=== PATIENT | male | born 1965 | race Caucasian/White ===

== ENCOUNTER 2016-06-22 12:36 | Emergency (ER) | payer MEDICAID ==
--- NOTE | 2016-06-22 13:42 | ER NURSING DOCUMENTATION ---
Nurse's Notes [facility] Name:Robbin Hammond Jr Age:51 yrs Sex:Male :1965 Arrival Date:06/22/2016 Time:12:36 Bed4 Private MD:Chato Pike Diagnosis:Cough Presentation: 06/22 12:54 Presenting complaint: Patient states: cough, congestion, SOB for the last month and a sc1 half but a little worse for the last 3 weeks. Pt. was put on Bactrim by Dr. Beard but is no better. Transition of care: Home. Notified ED Physician of patient's arrival and CC Ventura Briseno notified. 12:54 Acuity: SHANNON 3 sc1 12:54 Method Of Arrival: Private Vehicle sc1 Triage Assessment: 13:11 General: Appears uncomfortable, well developed, well nourished, well groomed, Behavior sc1 is cooperative, pleasant. Pain: Complains of pain in chest. Pain: Quality of pain is described as burning. Respiratory: Breath sounds are clear bilaterally. Reports shortness of breath cough that is pain with cough pain with respiration Onset: The symptoms/episode began/occurred 3 - 7 weeks, the patient has moderate shortness of breath. Historical: - Allergies: No known drug Allergies; - Home Meds: 1. Bactrim DS Oral 2. Advair Diskus Inhl 3. Proair 4. Atenolol Oral - PMHx: HYPERTENSION; Bronchitis Asthmatic (August 02, 2014); - PSHx: repair of tendons in hand; - Ebola Screening: : Patient negative for fever greater than or equal to 101.5 degrees Fahrenheit, and additional compatible Ebola Virus Disease symptoms. Patient denies exposure to infectious person. Patient denies travel to an Ebola-affected area in the 21 days before illness onset. No symptoms or risks identified at this time. . - Immunization history: Flu Vaccine >1 year. - Social history: Smoking status: Patient states was never smoker of tobacco. Patient uses marijuana Patient/guardian denies using alcohol, street drugs, IV drugs. Screenin:13 Infectious Disease Risk None. Abuse screen: Denies threats or abuse. Nutritional sc1 screening: No deficits noted. Assessment: 13:42 Cardiovascular: Rhythm is regular. Respiratory: Airway is patent Respiratory effort is sc1 even, unlabored. Vital Signs: 13:12 BP 186 / 116; Pulse 88; Resp 18; Temp 98.2; Pulse Ox 96% on R/A; ri1 13:37 BP 168 / 98; Pulse 82; Resp 18; Temp 98.3; Pulse Ox 95% on R/A; [facility] ED Course: 12:38 Patient arrived in ED. ama 12:39 Chato Pike MD is Private Physician. ama 12:39 Chato Pike MD is Private Physician. ama 12:54 Raina Polo RN is Primary Nurse. [facility] 13:04 Triage completed. ri1 13:08 Kavon Whitehead MD is Attending Physician. wilda 13:13 Notified ED Physician of patient's arrival and chief complaint. Dr. Whitehead notified. Arm ri1 band placed on Bed in low position Call Light in Reach Gowned HOB Elevated Side rails up x1. 13:30 Chato Pike MD is Referral Physician. 13:42 Valuables Remains with patient. ri1 Administered Medications: No medications were administered Outcome: 13:31 Discharge ordered by MD. 13:37 Discharged to home ambulatory. [facility] 13:37 Condition: stable 13:37 Discharge instructions given to patient, Instructed on discharge instructions, follow up and referral plans. medication usage, Demonstrated understanding of instructions, medications, Prescriptions given X 4. 13:42 Patient left the ED. [facility] 06/23 13:55 Discharge F/U Call: Unable to reach: non-working number [facility] Signatures: Raina Polo RN RN [facility] Kavon Whitehead MD MD jm Averdick, Andrew, Reg Reg Mehrdad Millan mr
--- NOTE | 2016-06-22 13:42 | ER PHYSICIAN DOCUMENTATION ---
Physician Documentation [facility] Name:Robbin Hammond Jr Age:51 yrs Sex:Male :1965 Arrival Date:06/22/2016 Time:12:36 Bed4 Private MD:Chato Pike ED, John Disposition: 06/22/16 13:31 Discharged to Home/Self Care. Impression: Cough. - Condition is Good. - Prescriptions for Prednisone 20 mg Oral Tablet - take 2 tablet by ORAL route once daily for 5 days; 10 tablet. Tessalon Perles 100 mg Oral Capsule - take 1 capsule by ORAL route every 8 hours As needed; 15 capsule. Tussionex Pennkinetic ER 8- 10 mg/5 mL Oral - take 5 milliliter by ORAL route every 12 hours As needed; 100 milliliter. Cipro 500 mg Oral Tablet - take 1 tablet by ORAL route every 12 hours for 7 days; 14 tablet. - Medical Reconciliation form form. - Follow up: Chato Pike MD; When: 1 week; Reason: Continuance of care. - Problem is new. - Symptoms have improved. HPI: 06/22 13:00 This 51 yrs old Male presents to ER via Private Vehicle with complaints of jm Breathing Difficulty, Sore Throat. 13:00 The patient has shortness of breath at rest, with light activity. Onset: The jm symptom(s)/episode began/occurred 1 month(s) ago. Duration: The symptoms are continuous. Associated signs and symptoms: Pertinent positives: productive cough, sore throat and horse voice. . The patient has been recently seen by a physician: Dr. Pike, who thought he may have a staph infection, so he rx'd home 1 month supply of bactrim. . Cough has persisted after about 10 days of Bactrim, and pt feels he is getting no better, so he came here for a 2nd opinion. Pt is frustrated and sick of coughing. . Historical: - Allergies: No known drug Allergies; - Home Meds: 1. Bactrim DS Oral 2. Advair Diskus Inhl 3. Proair 4. Atenolol Oral - PMHx: HYPERTENSION; Bronchitis Asthmatic (August 02, 2014); - PSHx: repair of tendons in hand; - Ebola Screening: : Patient negative for fever greater than or equal to 101.5 degrees Fahrenheit, and additional compatible Ebola Virus Disease symptoms. Patient denies exposure to infectious person. Patient denies travel to an Ebola-affected area in the 21 days before illness onset. No symptoms or risks identified at this time. . - Immunization history: Flu Vaccine >1 year. - Social history: Smoking status: Patient states was never smoker of tobacco. Patient uses marijuana Patient/guardian denies using alcohol, street drugs, IV drugs. ROS: 13:00 Constitutional: Positive for fatigue, Negative for fever. jm 13:00 ENT: Positive for hoarseness, sore throat. 13:00 Respiratory: Positive for cough, dyspnea on exertion, shortness of breath. Exam: 13:00 Constitutional: The patient appears alert, awake, comfortable. 13:00 ENT: Posterior pharynx: is normal, Voice: is hoarse. 13:00 Cardiovascular: Rate: normal, Rhythm: regular. 13:00 Respiratory: Respirations: normal, Breath sounds: are normal. Vital Signs: 13:12 BP 186 / 116; Pulse 88; Resp 18; Temp 98.2; Pulse Ox 96% on R/A; sc1 13:37 BP 168 / 98; Pulse 82; Resp 18; Temp 98.3; Pulse Ox 95% on R/A; sc1 MDM: 13:00 Differential diagnosis: Anxiety Reaction Bronchitis pneumonia. Antibiotic administration: The patient is discharged and will get outpatient antibiotics, Cipro. Data reviewed: vital signs, nurses notes, old medical records, radiologic studies, and as a result, I will discharge patient. Test interpretation: by ED physician or midlevel provider: plain radiologic studies. Counseling: I had a detailed discussion with the patient and/or guardian regarding: the historical points, exam findings, and any diagnostic results supporting the discharge/admit diagnosis, radiology results, the need for outpatient follow up, with the patient's primary care provider. ED course: Pt w bronchitis in my opinoin. Will switch abx of cipro and given prednisone. Pt can f/u next week at [facility]. . 13:08 Patient medically screened. wilda Dispensed Medications: No medications were administered Signatures: Raina Polo RN RN sc1 Kavon Whitehead MD MD jm
--- NOTE | 2016-06-25 09:49 | RADIOLOGY REPORT ---
HISTORY: Shortness of breath requiring evaluation for infection. COMPARISON: November 30, 2014 chest radiographs FINDINGS: PA and lateral chest radiographs reveal the cardiac silhouette remains normal in size. No pneumothorax is identified. The lungs are clear. No acute osseous fractures are identified. IMPRESSION: Negative chest. Final Electronic Signature: This report was electronically signed by Carroll Nolen MD on 06/22/2016 1:44 PM. beka / YOAV
== END 2016-06-22 13:43 | disposition home or self-care (01) ==
LOC: ER 12:36
DX: R05 Cough (principal); J02.9 Acute pharyngitis, unspecified; R06.00 Dyspnea, unspecified; R06.02 Shortness of breath; R53.83 Other fatigue; R49.0 Dysphonia; I10 Essential (primary) hypertension; Z79.899 Other long term (current) drug therapy
CPT/HCPCS: 71020; 99282

== ENCOUNTER 2016-08-14 16:16 | Emergency (ER) | payer MEDICAID ==
[2016-08-14 17:08] LABS: INFLUENZA A/B INF A & B NEGATIVE
--- NOTE | 2016-08-14 18:08 | ER NURSING DOCUMENTATION ---
Nurse's Notes [facility] Name:Robbin Hammond Jr Age:51 yrs Sex:Male :1965 Arrival Date:08/14/2016 Time:16:16 Bed1 Private MD:Chato Pike Diagnosis:Laryngitis, w/o Obstruction;GERD Presentation: 08/14 16:15 Presenting complaint: Patient states: Cough, sore throat, abd pain (since vomiting x1 tg today), generally not feeling well. Symptoms have been on-going for 3 months, multiple workups, saw pulmonology yesterday ("lungs are fine."). Transition of care: patient was not received from another setting of care. 16:15 Method Of Arrival: Private Vehicle tg 16:17 Acuity: SHANNON 4 tg Triage Assessment: 16:40 General: Appears uncomfortable, Behavior is anxious, cooperative. Pain: Complains of tg pain in abdomen. EENT: Throat is clear. Cardiovascular: Capillary refill < 3 seconds. Respiratory: Breath sounds are clear bilaterally. Reports cough that is. GI: Bowel sounds present X 4 quads. Abd is soft Reports normal bowel habits, vomiting, Denies constipation, diarrhea, nausea. Historical: - Allergies: Bee venom; - Home Meds: 1. losartan oral 2. thrush med - PMHx: Binge drinker- last drink in Feb.; ASTHMA; TBI; HYPERTENSION; thrush; - PSHx: hand surgery; - Tetanus: < 10 years. - Ebola Screening: : Patient negative for fever greater than or equal to 101.5 degrees Fahrenheit, and additional compatible Ebola Virus Disease symptoms. Patient denies exposure to infectious person. Patient denies travel to an Ebola-affected area in the 21 days before illness onset. No symptoms or risks identified at this time. . - Immunization history: Flu Vaccine >1 year. - Social history: Smoking status: Patient states was never smoker of tobacco. Patient/guardian denies using alcohol, marijuana. Screenin:55 Infectious Disease Risk Unable to Obtain. Abuse screen: Denies threats or abuse. Denies tg injuries from another. Nutritional screening: No deficits noted. Assessment: 16:56 Reassessment: Pt reports that he has ABD pain in the left since throwing up x1 this tg today.. Vital Signs: 16:25 BP 145 / 105; Pulse 96; Resp 18; Temp 98.4(O); Pulse Ox 92% on R/A; Weight 114.31 kg tg (R); Height 73 in. (185.42 cm) (R); Pain 7/10; 16:25 Body Mass Index 33.25 (114.31 kg, 185.42 cm) tg ED Course: 16:17 Patient arrived in ED. ds 16:17 Chato Pike MD is Private Physician. ds 16:17 Joey Richardson, RN is Primary Nurse. tg 16:18 Triage completed. tg 16:55 Arm band placed on. tg 17:10 David Katz MD is Attending Physician. cd 17:16 Chato Pike MD is Referral Physician. cd 18:05 Valuables Remains with patient. tg Administered Medications: No medications were administered Outcome: 17:17 Discharge ordered by MD. cd 18:04 Discharged to home ambulatory. tg 18:04 Condition: stable 18:04 Discharge Assessment: Patient awake and alert. 18:04 Instructed on discharge instructions, follow up and referral plans. medication usage, Prescriptions given X 3. 18:07 Patient left the ED. tg 04 09:37 Discharge F/U Call: Unable to reach: non-working number lp Signatures: Joey Richardson, RN RN tg Nery Villasenor RN RN lp Srot, Agnieszka, Reg Reg ds David Katz MD MD cd
--- NOTE | 2016-08-14 18:08 | ER PHYSICIAN DOCUMENTATION ---
Physician Documentation [facility] Name:Robbin Hammond Jr Age:51 yrs Sex:Male :1965 Arrival Date:08/14/2016 Time:16:16 Bed1 Private MD:Chato Pike ED, Chris Disposition: 08/14 17:20 Chart complete. cd Disposition: 08/14/16 17:17 Discharged to Home/Self Care. Impression: Laryngitis, w/o Obstruction, GERD. - Condition is Fair. - Discharge Instructions: ESOPHAGEAL REFLUX (Adult), Disease, Laryngeal - LARYNGITIS. - Prescriptions for Prilosec 20 mg Oral Capsule - take 1 capsule by ORAL route once daily; 10 capsule. Zofran 4 mg Oral - take 1 tablet by ORAL route every 6 hours; 10 tablet. Medrol (Vish) 4 mg Oral - take 1 Pack by ORAL route as directed - follow package instructions / 6-day Medrol Dose PAck; 1 packet. - Medical Reconciliation form form. - Follow up: Chato Pike MD; When: 7 - 10 days; Reason: Recheck today's complaints, Continuance of care. - Problem is an ongoing problem. - Symptoms are unchanged. - Notes: Drink plenty of fluids / water. Take your Thrush Medication as directed. Take Benadryl 25mg by mouth every 6 hours for 1 - 2 days Take your Medrol Dose Pack as directed over the next 7 days. Take Prilosec 20mg by mouth every day for 10 days. Follow up with Dr. Gutierres ENT on 08/29/[address] Angulo ENT on 08/24/2016 HPI: 16:20 This 51 yrs old Male presents to ER via Private Vehicle with complaints of cd Cough, hoarse voice, SOB. 16:20 The patient or guardian reports cough, that is intermittent, with no sputum, difficulty cd breathing, hoarse voice. Onset: The symptom(s)/episode began/occurred acutely, 3 month(s) ago, started with flu like symptoms. He has had multiple workups, has been on one course of Steroid, two courses of antibiotics. He was seen by a [employer] yesterday and was told his "lungs are fine". Tomorrow he has lung function studies ordered. His voice has been hoarse lately, but no sneezing.. Severity of symptoms: At their worst the symptoms were moderate, in the emergency department the symptoms have improved, mildly. Associated signs and symptoms: Pertinent positives: diarrhea, nausea, vomiting, upper abdominal pain at times, but no melena, Pertinent negatives: chest pain, fever, rhinorrhea, sore throat. Historical: - Allergies: Bee venom; - Home Meds: 1. losartan oral 2. thrush med - PMHx: Binge drinker- last drink in Feb.; ASTHMA; TBI; HYPERTENSION; thrush; - PSHx: hand surgery; - Tetanus: < 10 years. - Ebola Screening: : Patient negative for fever greater than or equal to 101.5 degrees Fahrenheit, and additional compatible Ebola Virus Disease symptoms. Patient denies exposure to infectious person. Patient denies travel to an Ebola-affected area in the 21 days before illness onset. No symptoms or risks identified at this time. . - Immunization history: Flu Vaccine >1 year. - Social history: Smoking status: Patient states was never smoker of tobacco. Patient/guardian denies using alcohol, marijuana. ROS: 16:30 ENT: Positive for hoarseness, Negative for ear pain, rhinorrhea, sore throat. cd 16:30 Respiratory: Positive for cough, with no reported sputum, shortness of breath, Negative for dyspnea on exertion, hemoptysis, orthopnea, pleurisy, sputum production, wheezing. 16:30 Abdomen/GI: Positive for abdominal pain, nausea, vomiting, anorexia, Negative for hematemesis, black/tarry stool, rectal bleeding. 16:30 All other systems are negative. Exam: 16:45 Head/Face: Normocephalic, atraumatic. cd Eyes: Pupils equal round and reactive to light, extra-ocular motions intact. Lids and lashes normal. Conjunctiva and sclera are non-icteric and not injected. Cornea within normal limits. Periorbital areas with no swelling, redness, or edema. Neck: Trachea midline, no thyromegaly or masses palpated, and no cervical lymphadenopathy. Supple, full range of motion without nuchal rigidity, or vertebral point tenderness. No Meningismus. 16:45 Cardiovascular: Regular rate and rhythm with a normal S1 and S2. No gallops, murmurs, cd or rubs. Normal PMI, no JVD. No pulse deficits. 16:45 Constitutional: The patient appears alert, awake, non-diaphoretic, non-toxic. 16:45 ENT: TM's: are normal, Posterior pharynx: Airway: normal, no evidence of obstruction, Tonsils: are normal in appearance, Uvula: midline, edematous, erythema, is not appreciated, exudate, is not appreciated, Voice: is hoarse. 16:45 Respiratory: the patient does not display signs of respiratory distress, Respirations: normal, no acute changes, Breath sounds: are normal, clear throughout, rales, are not appreciated, rhonchi, are not appreciated, wheezing, is not appreciated. Vital Signs: 16:25 BP 145 / 105; Pulse 96; Resp 18; Temp 98.4(O); Pulse Ox 92% on R/A; Weight 114.31 kg tg (R); Height 73 in. (185.42 cm) (R); Pain 7/10; 16:25 Body Mass Index 33.25 (114.31 kg, 185.42 cm) tg MDM: 17:10 Patient medically screened. cd 17:20 Data reviewed: vital signs, nurses notes, old medical records, lab test result(s), and cd as a result, I will discharge patient, administer steroids, Medrol Dose Pack. Data interpreted: Pulse oximetry: on room air is 92 %. Interpretation: normal. Counseling: I had a detailed discussion with the patient and/or guardian regarding: the historical points, exam findings, and any diagnostic results supporting the discharge/admit diagnosis, lab results, the need for outpatient follow up, for a recheck, with the patient's primary care provider, to return to the emergency department if symptoms worsen or persist or if there are any questions or concerns that arise at home. 08/14 17:09 Order name: INFLUENZA A/B; Complete Time: 17:12 EDMS 08/14 17:12 Interpretation: Normal. cd 08/14 17:34 Order name: MONOSCREEN; Complete Time: 08:52 EDMS 08/16 08:52 Interpretation: Normal. cd Dispensed Medications: No medications were administered Signatures: Joey Richardson RN RN tg David Katz MD MD cd
[2016-08-17 02:56] LABS: BORDETELLA PARAPERTUSSIS Negative (()); BORDETELLA PERTUSSIS PCR Negative (())
== END 2016-08-14 18:07 | disposition home or self-care (01) ==
LOC: ER 16:16
DX: J04.0 Acute laryngitis (principal); K21.9 Gastro-esophageal reflux disease without esophagitis; R05 Cough; R06.02 Shortness of breath; I10 Essential (primary) hypertension; Z79.899 Other long term (current) drug therapy
CPT/HCPCS: 36415; 86308; 87449; 87798; 99282